=== PATIENT | female | born 1995 | race American Indian/Alaskan Native ===

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

== ENCOUNTER 2017-05-17 13:56 | Emergency (ER) | payer MEDICAID ==
[2017-05-17 14:12] VITALS: BP 152/94
[2017-05-17] MEDS ORDERED: NACL 0.9% 500 ML 500 ML IV ONE (14:12)
[2017-05-17] MEDS ORDERED: TYLENOL PO ONE (14:24)
[2017-05-17 14:32] LABS: Bacteria,Urine 2+ /HPF (Negative); Bilirubin,Urine NEG (Negative); Blood,Urine SM (Negative); Ketones,Urine NEG (Negative); Leukocyte Esterase,Urine LG (Negative); Mucus,Urine FEW /HPF; Nitrite,Urine NEG (Negative)
--- NOTE | 2017-05-17 14:41 | XRay Report ---
FINAL REPORT PROCEDURE: XR CHEST ROUTINE 2V TECHNIQUE: PA and lateral chest radiographs were obtained. CPT 56678 HISTORY: possible Sepsis COMPARISON: No prior studies are available for comparison. FINDINGS: Heart: Normal. Mediastinum/Vessels: Normal. Lungs/Pleural space: No infiltrate effusion, or pneumothorax. Bony thorax: No acute osseous abnormality. Other: IMPRESSION: No pulmonary infiltrates are identified.
[2017-05-17 14:55] LABS: Hematocrit 30.9 % (30.3-42.9); Mean Corpuscular HGB Conc 32 % (30-34); Mean Corpuscular Volume 74 fl (79-97); Platelet Count 514 K/mm3 (140-440); Red Blood Count 4.21 M/mm3 (3.65-5.03); Red Cell Distribution Width 17.6 % (13.2-15.2); White Blood Count 14.1 K/mm3 (4.5-11.0)
[2017-05-17 15:04] LABS: Mean Corpuscular Hemoglobin 24 pg (28-32)
[2017-05-17 15:10] LABS: INR 1.19 (0.87-1.13)
[2017-05-17 15:17] LABS: Alanine Aminotransferase 19 units/L (7-56); Albumin 4.1 g/dL (3.9-5); Albumin/Globulin Ratio 1.1 %; Alkaline Phosphatase 109 units/L (35-129); Anion Gap 24 mmol/L; BUN/Creatinine Ratio 9; Blood Urea Nitrogen 6 mg/dL (7-17); Calcium 9.6 mg/dL (8.4-10.2); Carbon Dioxide 21 mmol/L (22-30); Chloride 95.3 mmol/L (98-107); Glucose 105 mg/dL (65-100); Sodium 137 mmol/L (137-145); Total Protein 7.7 g/dL (6.3-8.2)
[2017-05-17 16:35] LABS: Basophils % (Manual) 0 % (0.0-1.8); Blastocytes % (Manual) 0 %; Eosinophils % (Manual) 0 % (0.0-4.3)
[2017-05-17 16:36] LABS: Anisocytosis 1+; Diff Status Complete; Hypochromasia 1+; Ovalocytes 1+; Platelet Estimate Consistent w Auto
[2017-05-17] MEDS ORDERED: NACL 0.9% 1000 ML 2,000 ML IV ONE (17:08)
[2017-05-17] MEDS ORDERED: SUBLIMAZE IV ONE (17:13)
[2017-05-17] MEDS ORDERED: TORADOL IV ONE (17:13)
--- NOTE | 2017-05-17 17:15 | Emergency Department Report ---
ED General Adult HPI - General Chief complaint: Pain General Stated complaint: KIDNEY STONE PAIN Time Seen by Provider: 05/17/17 17:07 Source: patient, RN notes reviewed Mode of arrival: Ambulatory Limitations: No Limitations - History of Present Illness Initial comments: This is a 22-year-old female who is previously unknown to this provider, she reports that her private urology specialist is Dr. Hallie Ortiz Patient reports a history of kidney stones. Presents to the ER today complaining of back pain, fever, weakness. Symptoms have been going on for around 2 weeks. They're constant. Increase with palpation, decreased with rest. No nausea, vomiting, diarrhea, patient denies irritative/obstructive urinary symptoms. There is no abdominal pain, and patient indicates that feels like her prior kidney stone pain and episodes. -: Gradual, week(s) Location: back Severity scale (0 -10): 6 Quality: aching Consistency: intermittent Improves with: rest Worsens with: movement Associated Symptoms: fever/chills. denies: confusion, chest pain, cough, diaphoresis, loss of appetite, malaise, nausea/vomiting, shortness of breath, syncope Treatments Prior to Arrival: none - Related Data Home Medications Medication Instructions Recorded Confirmed Last Taken Vit-Fe Fumar-FA [ 1 tab PO QDAY 01/13/16 12/28/16 Unknown Vitamin] Previous Rx's Medication Instructions Recorded Last Taken Type Ibuprofen [Motrin 600 MG tab] 600 mg PO Q8H PRN #30 tablet 01/15/16 Unknown Rx Lidocain2.5%/Prilocai2.5% [Emla] 5 gm TP PRN #1 tube 01/16/16 Unknown Rx Ferrous Sulfate [Feosol 325 MG tab] 325 mg PO BID #60 tablet 12/27/16 Unknown Rx Ibuprofen [Motrin 800 MG tab] 800 mg PO Q6H PRN #30 tablet 12/27/16 Unknown Rx Lidocain2.5%/Prilocai2.5% [Emla] 5 gm TP PRN #1 tube 12/30/16 Unknown Rx Nitrofurantoin Sampson/M-Cryst 100 mg PO Q12HR #12 capsule 12/30/16 Unknown Rx [Macrobid CAP] traMADol [Ultram 50 MG tab] 50 mg PO Q6HR PRN #30 tablet 12/30/16 Unknown Rx Ketorolac [Toradol] 10 mg PO Q6H PRN #20 tablet 05/17/17 Unknown Rx Levofloxacin [Levaquin] 750 mg PO QDAY #10 tablet 05/17/17 Unknown Rx Metoclopramide [Reglan] 10 mg PO QID PRN #30 tablet 05/17/17 Unknown Rx Potassium Chloride 20 meq PO QDAY #10 packet 05/17/17 Unknown Rx Tamsulosin [Flomax] 0.4 mg PO QDAY #30 cap 05/17/17 Unknown Rx oxyCODONE [Roxicodone] 5 mg PO Q6HR PRN #15 tablet 05/17/17 Unknown Rx Allergies Allergy/AdvReac Type Severity Reaction Status Date / Time surgical tape AdvReac Rash Uncoded 01/12/16 21:46 ED Review of Systems ROS: Stated complaint: KIDNEY STONE PAIN Other details as noted in HPI Constitutional: fever Eyes: denies: eye discharge ENT: denies: epistaxis Respiratory: denies: cough Cardiovascular: denies: chest pain, palpitations Gastrointestinal: denies: vomiting Genitourinary: as per HPI Musculoskeletal: back pain Skin: denies: lesions Neurological: weakness Psychiatric: as per HPI ED Past Medical Hx - Past Medical History Previous Medical History?: Yes Hx Hypertension: No Hx Congestive Heart Failure: No Hx Diabetes: No Hx Deep Vein Thrombosis: No Hx Renal Disease: No Hx Sickle Cell Disease: No Hx Seizures: No Hx Asthma: Yes (last attack during childhood; no inhaler use) Hx COPD: No Hx HIV: No - Surgical History Past Surgical History?: No - Social History Smoking Status: Former Smoker Substance Use Type: Alcohol, Non Opiate Pain - Medications Home Medications: Home Medications Medication Instructions Recorded Confirmed Last Taken Type Vit-Fe Fumar-FA [ 1 tab PO QDAY 01/13/16 12/28/16 Unknown History Vitamin] Ibuprofen [Motrin 600 MG tab] 600 mg PO Q8H PRN #30 tablet 01/15/16 12/28/16 Unknown Rx Lidocain2.5%/Prilocai2.5% [Emla] 5 gm TP PRN #1 tube 01/16/16 12/28/16 Unknown Rx Ferrous Sulfate [Feosol 325 MG tab] 325 mg PO BID #60 tablet 12/27/16 Unknown Rx Ibuprofen [Motrin 800 MG tab] 800 mg PO Q6H PRN #30 tablet 12/27/16 Unknown Rx Lidocain2.5%/Prilocai2.5% [Emla] 5 gm TP PRN #1 tube 12/30/16 Unknown Rx Nitrofurantoin Sampson/M-Cryst 100 mg PO Q12HR #12 capsule 12/30/16 Unknown Rx [Macrobid CAP] traMADol [Ultram 50 MG tab] 50 mg PO Q6HR PRN #30 tablet 12/30/16 Unknown Rx Ketorolac [Toradol] 10 mg PO Q6H PRN #20 tablet 05/17/17 Unknown Rx Levofloxacin [Levaquin] 750 mg PO QDAY #10 tablet 05/17/17 Unknown Rx Metoclopramide [Reglan] 10 mg PO QID PRN #30 tablet 05/17/17 Unknown Rx Potassium Chloride 20 meq PO QDAY #10 packet 05/17/17 Unknown Rx Tamsulosin [Flomax] 0.4 mg PO QDAY #30 cap 05/17/17 Unknown Rx oxyCODONE [Roxicodone] 5 mg PO Q6HR PRN #15 tablet 05/17/17 Unknown Rx ED Physical Exam - General Limitations: No Limitations General appearance: alert, in no apparent distress - Head Head exam: Present: atraumatic, normocephalic - Eye Eye exam: Present: normal appearance, EOMI. Absent: nystagmus - ENT ENT exam: Present: normal exam, normal orophraynx, mucous membranes moist, normal external ear exam - Neck Neck exam: Present: normal inspection, full ROM - Respiratory Respiratory exam: Present: normal lung sounds bilaterally. Absent: respiratory distress - Cardiovascular Cardiovascular Exam: Present: normal rhythm, tachycardia, normal heart sounds. Absent: systolic murmur, diastolic murmur, rubs, gallop - GI/Abdominal GI/Abdominal exam: Present: soft, normal bowel sounds. Absent: distended, tenderness, guarding, rebound, rigid, pulsatile mass - Extremities Exam Extremities exam: Present: normal inspection, full ROM, normal capillary refill. Absent: pedal edema, joint swelling, calf tenderness - Back Exam Back exam: Present: normal inspection, full ROM, CVA tenderness (R), CVA tenderness (L), paraspinal tenderness. Absent: vertebral tenderness - Neurological Exam Neurological exam: Present: alert, oriented X3, CN II-XII intact, normal gait, other (Extraocular movements intact. Tongue midline. No facial droop. Facial sensation intact to light touch in the V1, V2, V3 distribution bilaterally. 5 and 5 strength in 4 extremities.. Sensation is intact to light touch in 4 extremities.). Absent: motor sensory deficit - Psychiatric Psychiatric exam: Present: normal affect, normal mood - Skin Skin exam: Present: warm, dry, intact, normal color. Absent: rash ED Course Vital Signs 05/17/17 05/17/17 14:08 19:46 Temperature 102.8 F H 98.6 F Pulse Rate 124 H 127 H Respiratory 18 15 Rate Blood Pressure 152/94 O2 Sat by Pulse 98 Oximetry - Reevaluation(s) Reevaluation #1: 05/17/17 18:04 Differential diagnosis, including but not limited to: Upper urinary tract infection, infected kidney stone, sepsis secondary to urinary tract infection Assessment and plan: 22-year-old female who is febrile, tachycardic, with bilateral CVA tenderness, meet sepsis criteria, with a presentation concerning for infected kidney stone. She is febrile, tachycardic but hemodynamically stable. Patient will be treated along a sepsis pathway with aggressive IV fluids at 30 mL/kg, blood cultures, urine cultures, lactic acid, and IV ceftriaxone. We will attempt to contact her private urologist to provide definitive management, however that group is addiction counselor for the hospital today, so if they do not call back in a timely fashion, patient will need transfer to another hospital for definitive care. Reevaluation #2: 05/17/17 18:21 Patient is going to sign out AGAINST MEDICAL ADVICE. Patient does not want to be admitted to the hospital. I have instructed the patient as to the gravity and nature of her symptoms, and explained the risks of leaving, including , disability, paralysis, permanent loss of quality of life. The patient is alert and oriented 3, exhibits decision-making capacity, and is free from distracting injury. Patient is able to endorse risks in her own words, and clearly understands the risks of leaving, including and disability. I offered the patient admission to the hospital and she is refusing. I also offered the patient's transfer to another hospital has urology on-call, and she is also refusing. Patient loaded with 1 g of ceftriaxone, even oral Tylenol, I have ordered oral potassium repletion, patient will be discharged with antibiotic therapy, pain medication, nausea medication, and she is instructed to follow up as soon as possible with outpatient urology. The AMA conversation as witnessed by nurse Fabrice Adams, as well as by the patient's friend 05/17/17 18:23 05/17/17 18:25 ED Medical Decision Making - Lab Data Result diagrams: 05/17/17 14:32 05/17/17 14:32 Vital Signs 05/17/17 14:08 Temperature 102.8 F H Pulse Rate 124 H Respiratory 18 Rate Blood Pressure 152/94 O2 Sat by Pulse 98 Oximetry Lab Results 05/17/17 05/17/17 05/17/17 Range/Units 14:05 14:32 14:32 WBC 14.1 H (4.5-11.0) K/mm3 RBC 4.21 (3.65-5.03) M/mm3 Hgb 10.0 L (10.1-14.3) gm/dl Hct 30.9 (30.3-42.9) % MCV 74 L (79-97) fl MCH 24 L (28-32) pg MCHC 32 (30-34) % RDW 17.6 H (13.2-15.2) % Plt Count 514 H (140-440) K/mm3 Add Manual Diff Complete Total Counted 100 Seg Neuts % (Manual) 78.0 H (40.0-70.0) % Band Neutrophils % 2.0 % Lymphocytes % (Manual) 11.0 L (13.4-35.0) % Reactive Lymphs % (Man) 0 % Monocytes % (Manual) 9.0 H (0.0-7.3) % Eosinophils % (Manual) 0 (0.0-4.3) % Basophils % (Manual) 0 (0.0-1.8) % Metamyelocytes % 0 % Myelocytes % 0 % Promyelocytes % 0 % Blast Cells % 0 % Nucleated RBC % Not Reportable Seg Neutrophils # Man 11.0 H (1.8-7.7) K/mm3 Band Neutrophils # 0.3 K/mm3 Lymphocytes # (Manual) 1.6 (1.2-5.4) K/mm3 Abs React Lymphs (Man) 0.0 K/mm3 Monocytes # (Manual) 1.3 H (0.0-0.8) K/mm3 Eosinophils # (Manual) 0.0 (0.0-0.4) K/mm3 Basophils # (Manual) 0.0 (0.0-0.1) K/mm3 Metamyelocytes # 0.0 K/mm3 Myelocytes # 0.0 K/mm3 Promyelocytes # 0.0 K/mm3 Blast Cells # 0.0 K/mm3 WBC Morphology Not Reportable Hypersegmented Neuts Not Reportable Hyposegmented Neuts Not Reportable Hypogranular Neuts Not Reportable Smudge Cells Not Reportable Toxic Granulation Not Reportable Toxic Vacuolation Not Reportable Dohle Bodies Not Reportable Pelger-Huet Anomaly Not Reportable Prasanna Rods Not Reportable Platelet Estimate Consistent w auto Clumped Platelets Not Reportable Plt Clumps, EDTA Not Reportable Large Platelets Not Reportable Giant Platelets Not Reportable Platelet Satelliting Not Reportable Plt Morphology Comment Not Reportable RBC Morphology Not Reportable Dimorphic RBCs Not Reportable Polychromasia Not Reportable Hypochromasia 1+ Poikilocytosis Not Reportable Anisocytosis 1+ Microcytosis Not Reportable Macrocytosis Not Reportable Spherocytes Not Reportable Pappenheimer Bodies Not Reportable Sickle Cells Not Reportable Target Cells Not Reportable Tear Drop Cells Not Reportable Ovalocytes 1+ Helmet Cells Not Reportable Jacobo-Grant Bodies Not Reportable [place] Rings Not Reportable [place] Cells Not Reportable Bite Cells Not Reportable Crenated Cell Not Reportable Elliptocytes Not Reportable Acanthocytes (Spur) Not Reportable Rouleaux Not Reportable Hemoglobin C Crystals Not Reportable Schistocytes Not Reportable Malaria parasites Not Reportable Benjie Bodies Not Reportable Hem Pathologist Commnt No PT 15.7 H (12.2-14.9) Sec. INR 1.19 H (0.87-1.13) VBG pH (7.320-7.420) Sodium (137-145) mmol/L Potassium (3.6-5.0) mmol/L Chloride (98-107) mmol/L Carbon Dioxide (22-30) mmol/L Anion Gap mmol/L BUN (7-17) mg/dL Creatinine (0.7-1.2) mg/dL Estimated GFR ml/min BUN/Creatinine Ratio % Glucose (65-100) mg/dL Lactic Acid (0.7-2.0) mmol/L Calcium (8.4-10.2) mg/dL Total Bilirubin (0.1-1.2) mg/dL AST (5-40) units/L ALT (7-56) units/L Alkaline Phosphatase (35-129) units/L Total Protein (6.3-8.2) g/dL Albumin (3.9-5) g/dL Albumin/Globulin Ratio % Urine Color Yellow (Yellow) Urine Turbidity Slightly-cloudy (Clear) Urine pH 7.0 (5.0-7.0) Ur Specific [place] 1.003 (1.003-1.030) Urine Protein 30 mg/dl (Negative) mg/dL Urine Glucose (UA) Neg (Negative) mg/dL Urine Ketones Neg (Negative) mg/dL Urine Blood Sm (Negative) Urine Nitrite Neg (Negative) Urine Bilirubin Neg (Negative) Urine Urobilinogen 2.0 (<2.0) mg/dL Ur Leukocyte Esterase Lg (Negative) Urine WBC (Auto) 85.0 H (0.0-6.0) /HPF Urine RBC (Auto) 12.0 (0.0-6.0) /HPF U Epithel Cells (Auto) 3.0 (0-13.0) /HPF Urine Bacteria (Auto) 2+ (Negative) /HPF Urine Mucus Few /HPF 05/17/17 05/17/17 05/17/17 Range/Units 14:32 14:32 14:32 WBC (4.5-11.0) K/mm3 RBC (3.65-5.03) M/mm3 Hgb (10.1-14.3) gm/dl Hct (30.3-42.9) % MCV (79-97) fl MCH (28-32) pg MCHC (30-34) % RDW (13.2-15.2) % Plt Count (140-440) K/mm3 Add Manual Diff Total Counted Seg Neuts % (Manual) (40.0-70.0) % Band Neutrophils % % Lymphocytes % (Manual) (13.4-35.0) % Reactive Lymphs % (Man) % Monocytes % (Manual) (0.0-7.3) % Eosinophils % (Manual) (0.0-4.3) % Basophils % (Manual) (0.0-1.8) % Metamyelocytes % % Myelocytes % % Promyelocytes % % Blast Cells % % Nucleated RBC % Seg Neutrophils # Man (1.8-7.7) K/mm3 Band Neutrophils # K/mm3 Lymphocytes # (Manual) (1.2-5.4) K/mm3 Abs React Lymphs (Man) K/mm3 Monocytes # (Manual) (0.0-0.8) K/mm3 Eosinophils # (Manual) (0.0-0.4) K/mm3 Basophils # (Manual) (0.0-0.1) K/mm3 Metamyelocytes # K/mm3 Myelocytes # K/mm3 Promyelocytes # K/mm3 Blast Cells # K/mm3 WBC Morphology Hypersegmented Neuts Hyposegmented Neuts Hypogranular Neuts Smudge Cells Toxic Granulation Toxic Vacuolation Dohle Bodies Pelger-Huet Anomaly Prasanna Rods Platelet Estimate Clumped Platelets Plt Clumps, EDTA Large Platelets Giant Platelets Platelet Satelliting Plt Morphology Comment RBC Morphology Dimorphic RBCs Polychromasia Hypochromasia Poikilocytosis Anisocytosis Microcytosis Macrocytosis Spherocytes Pappenheimer Bodies Sickle Cells Target Cells Tear Drop Cells Ovalocytes Helmet Cells Jacobo-Grant Bodies [place] Rings Aidee Cells Bite Cells Crenated Cell Elliptocytes Acanthocytes (Spur) Rouleaux Hemoglobin C Crystals Schistocytes Malaria parasites Benjie Bodies Hem Pathologist Commnt PT (12.2-14.9) Sec. INR (0.87-1.13) VBG pH 7.525 H (7.320-7.420) Sodium 137 (137-145) mmol/L Potassium 3.0 L (3.6-5.0) mmol/L Chloride 95.3 L (98-107) mmol/L Carbon Dioxide 21 L (22-30) mmol/L Anion Gap 24 mmol/L BUN 6 L (7-17) mg/dL Creatinine 0.7 (0.7-1.2) mg/dL Estimated GFR > 60 ml/min BUN/Creatinine Ratio 9 % Glucose 105 H (65-100) mg/dL Lactic Acid 1.50 (0.7-2.0) mmol/L Calcium 9.6 (8.4-10.2) mg/dL Total Bilirubin 0.50 (0.1-1.2) mg/dL AST 17 (5-40) units/L ALT 19 (7-56) units/L Alkaline Phosphatase 109 (35-129) units/L Total Protein 7.7 (6.3-8.2) g/dL Albumin 4.1 (3.9-5) g/dL Albumin/Globulin Ratio 1.1 % Urine Color (Yellow) Urine Turbidity (Clear) Urine pH (5.0-7.0) Ur Specific [place] (1.003-1.030) Urine Protein (Negative) mg/dL Urine Glucose (UA) (Negative) mg/dL Urine Ketones (Negative) mg/dL Urine Blood (Negative) Urine Nitrite (Negative) Urine Bilirubin (Negative) Urine Urobilinogen (<2.0) mg/dL Ur Leukocyte Esterase (Negative) Urine WBC (Auto) (0.0-6.0) /HPF Urine RBC (Auto) (0.0-6.0) /HPF U Epithel Cells (Auto) (0-13.0) /HPF Urine Bacteria (Auto) (Negative) /HPF Urine Mucus /HPF // Range/Units 16:23 WBC (4.5-11.0) K/mm3 RBC (3.65-5.03) M/mm3 Hgb (10.1-14.3) gm/dl Hct (30.3-42.9) % MCV (79-97) fl MCH (28-32) pg MCHC (30-34) % RDW (13.2-15.2) % Plt Count (140-440) K/mm3 Add Manual Diff Total Counted Seg Neuts % (Manual) (40.0-70.0) % Band Neutrophils % % Lymphocytes % (Manual) (13.4-35.0) % Reactive Lymphs % (Man) % Monocytes % (Manual) (0.0-7.3) % Eosinophils % (Manual) (0.0-4.3) % Basophils % (Manual) (0.0-1.8) % Metamyelocytes % % Myelocytes % % Promyelocytes % % Blast Cells % % Nucleated RBC % Seg Neutrophils # Man (1.8-7.7) K/mm3 Band Neutrophils # K/mm3 Lymphocytes # (Manual) (1.2-5.4) K/mm3 Abs React Lymphs (Man) K/mm3 Monocytes # (Manual) (0.0-0.8) K/mm3 Eosinophils # (Manual) (0.0-0.4) K/mm3 Basophils # (Manual) (0.0-0.1) K/mm3 Metamyelocytes # K/mm3 Myelocytes # K/mm3 Promyelocytes # K/mm3 Blast Cells # K/mm3 WBC Morphology Hypersegmented Neuts Hyposegmented Neuts Hypogranular Neuts Smudge Cells Toxic Granulation Toxic Vacuolation Dohle Bodies Pelger-Huet Anomaly Prasanna Rods Platelet Estimate Clumped Platelets Plt Clumps, EDTA Large Platelets Giant Platelets Platelet Satelliting Plt Morphology Comment RBC Morphology Dimorphic RBCs Polychromasia Hypochromasia Poikilocytosis Anisocytosis Microcytosis Macrocytosis Spherocytes Pappenheimer Bodies Sickle Cells Target Cells Tear Drop Cells Ovalocytes Helmet Cells Jacobo-Grant Bodies [place] Rings Aidee Cells Bite Cells Crenated Cell Elliptocytes Acanthocytes (Spur) Rouleaux Hemoglobin C Crystals Schistocytes Malaria parasites Benjie Bodies Hem Pathologist Commnt PT (12.2-14.9) Sec. INR (0.87-1.13) VBG pH (7.320-7.420) Sodium (137-145) mmol/L Potassium (3.6-5.0) mmol/L Chloride (98-107) mmol/L Carbon Dioxide (22-30) mmol/L Anion Gap mmol/L BUN (7-17) mg/dL Creatinine (0.7-1.2) mg/dL Estimated GFR ml/min BUN/Creatinine Ratio % Glucose (65-100) mg/dL Lactic Acid 1.00 (0.7-2.0) mmol/L Calcium (8.4-10.2) mg/dL Total Bilirubin (0.1-1.2) mg/dL AST (5-40) units/L ALT (7-56) units/L Alkaline Phosphatase (35-129) units/L Total Protein (6.3-8.2) g/dL Albumin (3.9-5) g/dL Albumin/Globulin Ratio % Urine Color (Yellow) Urine Turbidity (Clear) Urine pH (5.0-7.0) Ur Specific [place] (1.003-1.030) Urine Protein (Negative) mg/dL Urine Glucose (UA) (Negative) mg/dL Urine Ketones (Negative) mg/dL Urine Blood (Negative) Urine Nitrite (Negative) Urine Bilirubin (Negative) Urine Urobilinogen (<2.0) mg/dL Ur Leukocyte Esterase (Negative) Urine WBC (Auto) (0.0-6.0) /HPF Urine RBC (Auto) (0.0-6.0) /HPF U Epithel Cells (Auto) (0-13.0) /HPF Urine Bacteria (Auto) (Negative) /HPF Urine Mucus /HPF - EKG Data 05/17/17 18:05 Sinus tachycardia, 114 bpm, normal axis, normal intervals, aphasic T-wave V3, persistent juvenile T-wave inversion, not morphologically consistent with ST elevation myocardial infarction - Radiology Data Radiology results: report reviewed, image reviewed Referring Physician: YUKI SUMMERS Patient Name: JOHN PAUL KING Date of : 1995 Sex: Female Report Date: 2017-05-17 Report Status: [place] [address] Cat Scan Report Signed Patient: JOHN PAUL KING MR#: [id number] : 1995 Acct:[id number] Age/Sex: 22 / F ADM Date: 05/17/17 Loc: ED Attending Dr: Ordering Physician: YUKI SUMMERS MD Date of Service: 05/17/17 Procedure(s): CT abdomen pelvis wo con Accession Number(s): [id number] cc: YUKI SUMMERS MD FINAL REPORT PROCEDURE: CT ABDOMEN PELVIS WO CON TECHNIQUE: Computerized axial tomography of the abdomen and pelvis was performed without intravenous contrast. This study is performed without intravascular contrast material and its sensitivity for abdominal and pelvic pathology, including neoplasms, inflammation, abscess, free fluid, thrombosis, arterial dissection and infarction, is reduced compared with a contrast enhanced study. HISTORY: back pain COMPARISON: No prior studies are available for comparison. FINDINGS: Visualized lower thorax: No significant abnormality. Liver: Normal size and attenuation. Spleen: Normal size and attenuation. Gallbladder and biliary system: Layering high density material seen in the gallbladder lumen, which is compatible with gallstones. Pancreas: Normal. Adrenals: Normal. Kidneys: There is faint medullary calcifications throughout the left kidney. There is a large obstructing 1 centimeter calculus in the proximal right ureter, with moderate right hydroureteronephrosis. GI tract: Appendix is visualized and does not appear inflamed. No bowel obstruction or acute inflammation is seen. Lymph nodes and mesentery: Normal. Vasculature: Normal. Bladder: Normal. Reproductive organs: Normal. Peritoneum: No free fluid. Musculoskeletal structures: No significant abnormality. Other: None. IMPRESSION: 1 centimeter calculus in the proximal right ureter, with moderate right hydroureteronephrosis. Left renal medullary calcifications. Cholelithiasis. Transcribed By: [facility] Dictated By: WENDI PALACIOS M.D. Electronically Authenticated By: WENDI PALACIOS M.D. Signed Date/Time: 05/17/17 134 DD/ 48 Critical care attestation.: If time is entered above; I have spent that time in minutes in the direct care of this critically ill patient, excluding procedure time. ED Disposition Clinical Impression: SIRS (systemic inflammatory response syndrome), Urinary tract infection Disposition: LEFT AGAINST MED ADVICE Is pt being admited?: No Does the pt Need Aspirin: No Condition: Undetermined Additional Instructions: As we discussed, you have left the hospital/emergency room AGAINST MEDICAL ADVICE. By leaving, you risked , disability, paralysis, permanent loss of quality of life. The ER is open 24 hours a day, 7 days a week. It never closes. Please return to the emergency room right away if and when you change your mind. If you decide not to return to the emergency room, please follow-up with the listed physician referrals as soon as possible. Cultures were sent today, results will be available the next 3-5 days, have a primary care doctor contact the medical records department to obtain culture results. Prescriptions: Ketorolac [Toradol] 10 mg PO Q6H PRN #20 tablet PRN Reason: Pain Levofloxacin [Levaquin] 750 mg PO QDAY #10 tablet Metoclopramide [Reglan] 10 mg PO QID PRN #30 tablet PRN Reason: Nausea oxyCODONE [Roxicodone] 5 mg PO Q6HR PRN #15 tablet PRN Reason: Pain Potassium Chloride 20 meq PO QDAY #10 packet Tamsulosin [Flomax] 0.4 mg PO QDAY #30 cap Referrals: YUKI MONTILLA MD [Primary Care Provider] - 3-5 Days THERESA GAY MD [Staff Physician] - 3-5 Days
[2017-05-17] MEDS ORDERED: cefTRIAXone 1 GM in NACL 0.9% 20 ML IV ONE (17:45)
--- NOTE | 2017-05-17 17:53 | Cat Scan Report ---
FINAL REPORT PROCEDURE: CT ABDOMEN PELVIS WO CON TECHNIQUE: Computerized axial tomography of the abdomen and pelvis was performed without intravenous contrast. This study is performed without intravascular contrast material and its sensitivity for abdominal and pelvic pathology, including neoplasms, inflammation, abscess, free fluid, thrombosis, arterial dissection and infarction, is reduced compared with a contrast enhanced study. HISTORY: back pain COMPARISON: No prior studies are available for comparison. FINDINGS: Visualized lower thorax: No significant abnormality. Liver: Normal size and attenuation. Spleen: Normal size and attenuation. Gallbladder and biliary system: Layering high density material seen in the gallbladder lumen, which is compatible with gallstones. Pancreas: Normal. Adrenals: Normal. Kidneys: There is faint medullary calcifications throughout the left kidney. There is a large obstructing 1 centimeter calculus in the proximal right ureter, with moderate right hydroureteronephrosis. GI tract: Appendix is visualized and does not appear inflamed. No bowel obstruction or acute inflammation is seen. Lymph nodes and mesentery: Normal. Vasculature: Normal. Bladder: Normal. Reproductive organs: Normal. Peritoneum: No free fluid. Musculoskeletal structures: No significant abnormality. Other: None. IMPRESSION: 1 centimeter calculus in the proximal right ureter, with moderate right hydroureteronephrosis. Left renal medullary calcifications. Cholelithiasis.
[2017-05-17] MEDS ORDERED: ROCEPHIN/NS 1 GM/50 ML 1 GM/50 ML BAG IV ONE (18:00)
[2017-05-17] MEDS ORDERED: K-DUR PO ONE (18:01)
[2017-05-17] MEDS ORDERED: XYLOCAINE 1% MPF 5 mL INFILTRATI ONE ×2 (18:20→18:31)
[2017-05-17] MEDS ORDERED: ROCEPHIN IM ONE ×2 (18:20→18:31)
[2017-05-17] MEDS ORDERED: KCL 10MEQ/100ML 10 MEQ/100 ML BAG IV SCH (19:00)
== END 2017-05-17 19:46 | disposition left against medical advice (07) ==
LOC: ED 13:56
DX: R65.10 Systemic inflammatory response syndrome (SIRS) of non-infectious origin without acute organ dysfunction (principal); N39.0 Urinary tract infection, site not specified; J45.909 Unspecified asthma, uncomplicated; Z87.891 Personal history of nicotine dependence; Z91.048 Other nonmedicinal substance allergy status
CPT/HCPCS: 36415; 71020; 74176; 80053; 81001; 82140; 82805; 83735; 85007; 85025; 85610; 87040; 87086; 93005; 93010; 96372; 99285; J0696; J1885; J3010; J7030

== ENCOUNTER 2017-05-20 12:24 | Emergency (ER) | payer MEDICAID ==
[2017-05-20 12:53] VITALS: BP 148/92
--- NOTE | 2017-05-20 13:20 | Emergency Department Report ---
Chief Complaint: Abdominal Pain Stated Complaint: RIGHT FLANK PAIN Time Seen by Provider: 05/20/17 13:20 - HPI History of Present Illness: Patient here reports that she was seen here 2 days ago and was diagnosed with kidney stone with blockage. She says she's been having kidney stone for a few years and she's been seen by [facility]. Patient says she is having right flank pain. She said they told her that she has urinary tract infection and large kidney stone and they could not get an IV on her and was in the process of sending her to [place] but she denies it to leave. She is supposed to follow up with Dr. Bullard at [facility] but she says she came here K she is having flank pain at 6 at attendants a can and feel colicky. Denies any fever or chills. Medical record reflect patient was here on 05/17 2017 and she was given prescription for Toradol by mouth, Levaquin by mouth, Reglan by mouth, potassium by mouth, Flomax by mouth and oxycodone. She signed AMA. She was seen by . 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 Left renal medullary calcification and cholelithiasis. H&H and had extensive lab work done. Venous pH elevated, lactic acid 1.50 and her white count was elevated on 05/17 2017 with positive urinary tract infection. Patient was diagnosed with SIRS. - ROS Review of Systems: All systems are negative unless stated in HPI above. - Exam Vital Signs: Vital Signs 05/20/17 12:50 Temperature 98.5 F Pulse Rate 103 H Respiratory 16 Rate Blood Pressure 148/92 O2 Sat by Pulse 98 Oximetry Physical Exam: Gen.: This is a 22-year-old female well-nourished well-developed in no acute distress. She is nontoxic in appearance. Abdomen: No acute abdomen, no distention or rigidity. Normal bowel sounds. Positive right CVA tenderness. MSE screening note: Focused history and physical exam performed. Due to findings the following was ordered: ED Medical Decision Making - Medical Decision Making MDM: Patient screened by provider in triage area. Appropriate protocol initiated and patient to be seen in main ED by ED Disposition for MSE Condition: Stable Instructions: Abdominal Pain (ED)
[2017-05-20 14:27] LABS: Bacteria,Urine 1+ /HPF (Negative); Bilirubin,Urine NEG (Negative); Blood,Urine SM (Negative); Ketones,Urine NEG (Negative); Leukocyte Esterase,Urine LG (Negative); Mucus,Urine FEW /HPF; Nitrite,Urine NEG (Negative); Protein,Urine <15 mg/dL mg/dL (Negative); Urobilinogen,Urine < 2.0 mg/dL (<2.0)
== END 2017-05-20 20:45 | disposition left against medical advice (07) ==
LOC: ED 12:24
DX: R10.9 Unspecified abdominal pain (principal); Z53.21 Procedure and treatment not carried out due to patient leaving prior to being seen by health care provider
CPT/HCPCS: 81001; 87076; 87086; 87186

== ENCOUNTER 2017-06-26 11:16 | Day surgery (SDC) | payer MEDICAID ==
[2017-06-26] MEDS ORDERED: NACL BACTERIOSTATIC INFILTRATI ONE (11:32)
[2017-06-26] MEDS ORDERED: DIPRIVAN 10 MG/ML IV ONE (11:35)
[2017-06-26] MEDS ORDERED: XYLOCAINE MPF 2% ONE (11:37)
[2017-06-26] MEDS ORDERED: ZOFRAN IV NR (11:48)
--- NOTE | 2017-06-26 11:50 | Anesthesia Day of Surgery ---
Anesthesia Day of Surgery - Day of Surgery Patient Examined: Yes Patient H&P Reviewed: Yes Patient is NPO: Yes
--- NOTE | 2017-06-26 11:51 | Anesthesia Consultation ---
Anesthesia Consult and Med Hx Date of service: 06/26/17 - Airway Anesthetic Teeth Evaluation: Good ROM Head & Neck: Adequate Mental/Hyoid Distance: Inadequate Mallampati Class: Class III Intubation Access Assessment: Possibly Difficult - Pulmonary Exam CTA: Yes - Pre-Operative Health Status ASA Pre-Surgery Classification: ASA1, ASA2 Proposed Anesthetic Plan: General - Pulmonary Hx Smoking: Yes (STOPPED 2014) Hx Asthma: Yes ( CHILD ONLY) COPD: No Hx Pneumonia: No Hx Sleep Apnea: No (YAN PRE SCREEN LOW RISK) - Cardiovascular System Hx Hypertension: Yes (WITH PREG ONLY , RESOLVED) Hx Heart Murmur: No - Central Nervous System Hx Seizures: No Hx Back Pain: Yes (FROM STONE) Hx Psychiatric Problems: No - Gastrointestinal Hx Gastroesophageal Reflux Disease: Yes - Endocrine Hx Renal Disease: No Hx End Stage Renal Disease: No Hx Non-Insulin Dependent Diabetes: Yes (gestational, diet controlled) Hx Hypothyroidism: No Hx Hyperthyroidism: No - Hematic Hx Anemia: Yes Hx Sickle Cell Disease: No - Other Systems Hx Alcohol Use: No Hx Cancer: No Hx Obesity: Yes
[2017-06-26] MEDS ORDERED: ZOFRAN IV PRN (11:56)
[2017-06-26] MEDS ORDERED: NACL 0.9% 1000 ML 1,000 ML ONE (11:56)
[2017-06-26 12:00] LABS: Hematocrit 30.4 % (30.3-42.9); Hemoglobin 9.8 gm/dl (10.1-14.3)
[2017-06-26] MEDS ORDERED: NACL 0.9% 1000 ML 1,000 ML IV SCH (12:00)
[2017-06-26] MEDS ORDERED: ANCEF/STERILE WATER 2 GM/20 ML IV NR (12:00)
[2017-06-26] MEDS ORDERED: SUBLIMAZE IV ONE (12:00)
--- NOTE | 2017-06-26 12:40 | Post Operative Note ---
Date of procedure: 06/26/17 Pre-op diagnosis: ureteral stone huge Post-op diagnosis: same Findings: as above Procedure: R eswl Anesthesia: CALDERON Surgeon: RACHELLE FRENCH Estimated blood loss: none Pathology: none Condition: stable Disposition: PACU
--- NOTE | 2017-06-26 12:41 | Discharge Summary ---
Short Stay Discharge Plan Activity: other (no straining ) Weight Bearing Status: Full Weight Bearing Diet: regular Special Instructions: other (inc fluids ) Durable Medical Equipment Needed Upon Discharge: other (has stent ) Follow up with: LACY MAKI PA [Primary Care Provider] - 7 Days RACHELLE FRENCH MD [Staff Physician] - 7 Days
[2017-06-26] MEDS ORDERED: PEPCID IV NR (13:00)
--- NOTE | 2017-06-26 13:10 | Operative Report ---
PREOPERATIVE DIAGNOSES: Very large right ureteral stone, previous stent placement for infection. POSTOPERATIVE DIAGNOSES: Very large right ureteral stone, previous stent placement for infection. PROCEDURE: Staged procedure, right lithotripsy likely followed by ureteroscopy. SURGEON: Steven Ortiz MD ANESTHESIA: General. FINDINGS: This is a woman who presented with severe pain and infection, stent was placed. She was treated. She now presents for followup. All risks and complications discussed. DESCRIPTION OF PROCEDURE: The patient was brought to the operating room and placed on the operating table. Following induction of anesthesia, placed over the focal point, F2 focal point, both the oblique and AP image without difficulty. Shocks were begun at 1 kV increased to maximum 5 kV. Total of 2500 shocks were given. It looked like the shock wave went through the lower pole, so we did want to give more and we did want to go up any higher. The patient tolerated the procedure well. There was excellent change in the consistency, looks like there was good fragmentation. The patient tolerated the procedure well and brought to recovery room in stable condition. Family notified. JOB# [id number] LISA/ALINA
[2017-06-26] MEDS: DILAUDID IV PRN ×8 (13:19→15:22)
[2017-06-26] MEDS: SUBLIMAZE IV PRN ×2 (13:49→14:02)
--- NOTE | 2017-06-26 14:22 | Post Anesthesia Evaluation ---
- Post Anesthesia Evaluation Patient Participated: Yes Airway Patent: Yes Stable Respiratory Function: Yes Nausea/Vomiting: No Temp > 96.8F: Yes Pain Manageable: Yes Adequeate Hydration: Yes Anesthesia Complications: No
[2017-06-26] MEDS ORDERED: TORADOL IV ONE (15:00)
[2017-06-26] MEDS ORDERED: NORCO 7.5/325 PO ONE (16:45)
[2017-06-26 17:03] VITALS: BP 133/74
== END 2017-06-26 11:17 | disposition home or self-care (01) ==
LOC: OR 11:16
PROVIDERS: ATTEND Urology
DX: N20.1 Calculus of ureter (principal); K21.9 Gastro-esophageal reflux disease without esophagitis; J45.909 Unspecified asthma, uncomplicated; E66.9 Obesity, unspecified; Z68.31 Body mass index [BMI] 31.0-31.9, adult; Z87.891 Personal history of nicotine dependence; Z79.899 Other long term (current) drug therapy; Z91.048 Other nonmedicinal substance allergy status
CPT/HCPCS: 36415; 50590; 81025; 82962; 85014; 85018; J0690; J1170; J1885; J2405; J2704; J3010; J7030

== ENCOUNTER 2017-11-08 02:04 | Emergency (ER) | payer MEDICAID | END 2017-11-08 04:00 | disposition left against medical advice (07) | LOC: ED 02:04 | DX: R10.9 Unspecified abdominal pain (principal); Z53.21 Procedure and treatment not carried out due to patient leaving prior to being seen by health care provider ==